=== PATIENT | female | born 1955 | race Caucasian/White ===

== ENCOUNTER 2019-08-21 12:41 | Emergency (ER) | payer BC ==
[~2019-08-21] VITALS: Ht 154.9 cm; Wt 52.6 kg
[2019-08-21 12:50] VITALS: BP 126/78
--- NOTE | 2019-08-21 13:00 | NUR ---
PT CAME INTO THE ED C/O GROIN PAIN X 6 MONTHS ON AND OFF. 5/10 PS. WORSE TODAY. +NV. PT AAOX4, BREATHING EVEN AND UNLABORED ON RA W/ NAD NOTED. PT CONENCTED TO THE MONITOR AND POX
--- NOTE | 2019-08-21 13:20 | NUR ---
PT TAKEN TO CT
--- NOTE | 2019-08-21 13:37 | NUR ---
PT BACK FROM CT
== END 2019-08-21 14:02 | disposition home or self-care (01) ==
LOC: ER 12:45
DX: K57.32 Diverticulitis of large intestine without perforation or abscess without bleeding (principal); K29.70 Gastritis, unspecified, without bleeding